=== PATIENT | female | born 1975 | race Caucasian/White ===

== ENCOUNTER → 2016-10-07 | Day surgery (SDC) | payer OTHER ==
[~2016-10-07] VITALS: Ht 160 cm; Wt 61.7 kg
[~2016-10-07] MED LIST: ACETAMINOPHEN 650 MG SUPP As Ordered ONE; ACETAMINOPHEN 650 MG SUPP PR ONE; BUPIVACAINE HCL 0.25% 30 ML VIAL XX ONE; BUPIVACAINE/EPIN 0.25% 30 ML VIAL As Ordered ONE; GLYCOPYRROLATE INJ 0.2 MG/ML 2 ML VIAL As Ordered ONE; HYDROmorphone HCL 1 MG/ML SYRINGE (J1170) IV PRN; IBUP80TA PO; IBUPROFEN 800 MG TAB PO SCH; IMIT100T PO; KETOROLAC 60 MG/2 ML VIAL (J1885) As Ordered ONE; LIDOCAINE 2% INJ 100 MG/5 ML SDV (FOR ANES.) As Ordered ONE; LR 1,000 ML IV SCH; METHYLENE BLUE 1% 10 ML VIAL (Q9968) As Ordered ONE; METOCLOPRAMIDE INJ 10MG/2ML VIAL (J2765) As Ordered ONE; MIDAZOLAM INJ 2 MG/2 ML VIAL (J2250) As Ordered ONE; NABU750T PO; NEOSTIGMINE 1MG/ML 5 ML SYRINGE (J2710) As Ordered ONE; ONDANSETRON 4MG/2ML VIAL (J2405) As Ordered ONE; ONDANSETRON 4MG/2ML VIAL (J2405) IV PRN; PERCOCET 5MG/325MG TAB PO PRN; PROPOFOL 200 MG/20 ML VIAL As Ordered ONE; ROCURONIUM BROMIDE 50 MG/5 ML VIAL As Ordered ONE; TOPA25TA10 PO; TOPA50TA7 PO; dexameTHASONE 4 MG/ML 1ML VIAL (J1100) As Ordered ONE; fentaNYL 100 MCG/2 ML INJECTION (J3010) IV PRN; fentaNYL 250 MCG/5 ML INJECTION (J3010) As Ordered ONE
[2016-10-07 07:42] LABS: CONTROL LINE UCG INT CTR LINE PRESENT
[2016-10-07 07:58] LABS: MEAN CORPUSCULAR HEMOGLOBIN 32.2 pg (27.0-33.0); MEAN CORPUSCULAR HGB CONC 34.7 g/dl (32.0-36.5); MEAN CORPUSCULAR VOLUME 92.8 fl (80.0-96.0); RED CELL DISTRIBUTION WIDTH 11.8 % (11.5-14.5); WHITE BLOOD COUNT 6.3 K/mm3 (4.0-10.0)
[2016-10-07] MEDS: LR 1,000 ML IV SCH ×2 (07:59→08:00)
[2016-10-07 08:12] LABS: ANION GAP 7 MEQ/L (8-16); BLOOD UREA NITROGEN 15 MG/DL (7-18); CALCIUM LEVEL 9.1 MG/DL (8.5-10.1); CARBON DIOXIDE LEVEL 28 MEQ/L (21-32); CHLORIDE LEVEL 108 MEQ/L (98-107); CREATININE FOR GFR 0.85 MG/DL (0.55-1.02); GLOMERULAR FILTRATION RATE > 60.0 (>58); GLUCOSE, FASTING 103 MG/DL (70-105); POTASSIUM SERUM 3.6 MEQ/L (3.5-5.1); SODIUM LEVEL 143 MEQ/L (136-145)
--- NOTE | 2016-10-07 09:42 | RO ---
DATE OF PROCEDURE: 10/07/2016 PREOPERATIVE DIAGNOSIS: Chronic pelvic pain not responsive to medical treatment. POSTOPERATIVE DIAGNOSES: 1. Chronic pelvic pain not responsive to medical treatment. 2. Endometriotic implant in the posterior cul-de-sac. PROCEDURE: 1. Diagnostic laparoscopy. 2. Fulguration of endometriosis. SURGEON: Tyler Barerra DO HOT BLASTER: ANESTHESIA: General. Isabel is a 41-year-old female with extensive history of chronic pelvic pain not responding to oral pain medications. After counseling in the office, a decision was made for diagnostic laparoscopy, possible lysis of adhesion, possible fulguration of endometriosis. Complication none. Estimated blood loss less than 5 mL. Normal-appearing uterus, bilateral ovaries and tube. The appendix was visualized, which was within normal limit. The upper abdomen was within normal limit. The lower abdominal area was without any lesion. In the posterior cul-de-sac, two endometriotic implants were noted. The rest of the abdomen and pelvis was within normal limit. DESCRIPTION OF PROCEDURE: Obtaining informed consent, patient was taken to the operating room where general anesthetic was found to be adequate. She was then draped and prepped in usual sterile fashion in the dorsal lithotomy position. At this point, Buchanan catheter was placed in the bladder for drainage. We then placed uterine manipulator. Attention was then turned to the abdomen where a 5 mm infraumbilical incision was made. Using the Veress needle, the abdomen was insufflated with CO2 gas to approximately 3.5 liters. We then placed a 5 mm Xcel trocar along with the laparoscope under direct visualization. Then, a 5 mm right lateral port was placed. Patient was placed in Trendelenburg. The abdomen and pelvis was inspected with the above-noted findings. At this point, a 5 mm ball was used through the LYNN Harmonic device and the were fulgurated. Pelvis was then copiously irrigated with normal saline and suctioned out. Good hemostasis noted. The instruments were removed. The laparoscopic ports were then (dictation cutting out) 0.25% Marcaine was placed at the operative site for postoperative pain. Patient tolerated procedure well. She was then transferred to recovery room in stable condition.
[2016-10-07 11:05] VITALS: BP 116/67
== END ==
LOC: M SDC 07:11
PROVIDERS: ATTEND Obstetrics & Gynecology
DX: R10.2 Pelvic and perineal pain (principal); N80.3 Endometriosis of pelvic peritoneum; G43.909 Migraine, unspecified, not intractable, without status migrainosus; Z88.5 Allergy status to narcotic agent; Z88.8 Allergy status to other drugs, medicaments and biological substances; Z79.899 Other long term (current) drug therapy
CPT/HCPCS: 36415; 58662; 80048; 84703; 85027; 86850; 86900; 86901; J1100; J1885; J2250; J2405; J2710; J2765; J3010

== ENCOUNTER → 2018-03-27 | Outpatient (REF) | payer OTHER | LOC: M SFHCCLAY 12:37 | DX: J02.9 Acute pharyngitis, unspecified (principal) ==

== ENCOUNTER → 2019-03-14 | Outpatient (REF) | payer OTHER ==
[~2019-03-14] MED LIST changes: -ACETAMINOPHEN 650 MG SUPP As Ordered ONE; -ACETAMINOPHEN 650 MG SUPP PR ONE; -BUPIVACAINE HCL 0.25% 30 ML VIAL XX ONE; -BUPIVACAINE/EPIN 0.25% 30 ML VIAL As Ordered ONE; -GLYCOPYRROLATE INJ 0.2 MG/ML 2 ML VIAL As Ordered ONE; -HYDROmorphone HCL 1 MG/ML SYRINGE (J1170) IV PRN; -IBUPROFEN 800 MG TAB PO SCH; -KETOROLAC 60 MG/2 ML VIAL (J1885) As Ordered ONE; -LIDOCAINE 2% INJ 100 MG/5 ML SDV (FOR ANES.) As Ordered ONE; -LR 1,000 ML IV SCH; -METHYLENE BLUE 1% 10 ML VIAL (Q9968) As Ordered ONE; -METOCLOPRAMIDE INJ 10MG/2ML VIAL (J2765) As Ordered ONE; -MIDAZOLAM INJ 2 MG/2 ML VIAL (J2250) As Ordered ONE; +NABU-119 PO; -NABU750T PO; -NEOSTIGMINE 1MG/ML 5 ML SYRINGE (J2710) As Ordered ONE; -ONDANSETRON 4MG/2ML VIAL (J2405) As Ordered ONE; -ONDANSETRON 4MG/2ML VIAL (J2405) IV PRN; -PERCOCET 5MG/325MG TAB PO PRN; -PROPOFOL 200 MG/20 ML VIAL As Ordered ONE; -ROCURONIUM BROMIDE 50 MG/5 ML VIAL As Ordered ONE; +TOPA1TAB PO; -TOPA25TA10 PO; -TOPA50TA7 PO; +TOPA50TA8 PO; -dexameTHASONE 4 MG/ML 1ML VIAL (J1100) As Ordered ONE; -fentaNYL 100 MCG/2 ML INJECTION (J3010) IV PRN; -fentaNYL 250 MCG/5 ML INJECTION (J3010) As Ordered ONE
[2019-03-14 17:03] LABS: BASO # 0.1 10^3/uL (0.0-0.2); BASO % 1.2 % (0.0-1.0); EOS # 0.1 10^3/uL (0.0-0.50); EOS % 1.5 % (0.0-3.0); HEMATOCRIT 44.1 % (36.0-47.0); HEMOGLOBIN 15.2 g/dl (12.0-15.5); LYMPH # 1.5 10^3/uL (1.5-4.5); LYMPH % 22.3 % (24.0-44.0); MEAN CORPUSCULAR HEMOGLOBIN 33.4 pg (27.0-33.0); MEAN CORPUSCULAR HGB CONC 34.5 g/dl (32.0-36.5); MEAN CORPUSCULAR VOLUME 96.9 fl (80.0-96.0); MONO # 0.6 10^3/uL (0.0-0.8); MONO % 9.2 % (0.0-5.0); NEUTROPHILS # 4.2 10^3/uL (1.8-7.7); NEUTROPHILS % 65.5 % (36.0-66.0); PLATELET COUNT, AUTOMATED 260 10^3/uL (150-450); RED BLOOD COUNT 4.55 10^6/uL (4.00-5.40); WHITE BLOOD COUNT 6.5 10^3/uL (4.0-10.0)
[2019-03-14 17:16] LABS: ALBUMIN 4.1 GM/DL (3.2-5.2); ALT/SGPT 17 U/L (12-78); BILIRUBIN,TOTAL 0.4 MG/DL (0.2-1.0); BLOOD UREA NITROGEN 19 MG/DL (7-18); CALCIUM LEVEL 9.4 MG/DL (8.5-10.1); CARBON DIOXIDE LEVEL 26 MEQ/L (21-32); CHLORIDE LEVEL 108 MEQ/L (98-107); CREATININE FOR GFR 0.84 MG/DL (0.55-1.30); GLOMERULAR FILTRATION RATE > 60.0 (>58); GLUCOSE, FASTING 97 MG/DL (70-100); POTASSIUM SERUM 3.9 MEQ/L (3.5-5.1); SODIUM LEVEL 141 MEQ/L (136-145); TOTAL PROTEIN 7.5 GM/DL (6.4-8.2); URIC ACID 3.6 MG/DL (2.6-6.0)
[2019-03-14 19:39] LABS: ERYTHROCYTE SEDIMENTATION RATE 6 mm/hr (0-20)
== END ==
LOC: M SFHCCLAY 10:13
PROVIDERS: ATTEND Nurse Practitioner Family
DX: M79.7 Fibromyalgia (principal); M54.2 Cervicalgia; R20.2 Paresthesia of skin; M79.675 Pain in left toe(s)

== ENCOUNTER → 2019-06-11 | Outpatient (CLI) | payer OTHER ==
--- NOTE | 2019-06-11 18:12 | REP ---
Clinical: Left ankle pain. Technique: AP, lateral, bilateral oblique views of the left ankle. Findings: Findings to suggest prior open reduction and fixation. No acute fracture dislocation. Skeletal structures, joint spaces, ankle mortise, and surrounding soft tissues are grossly normal. Impression: No obvious acute fracture dislocation. Electronically Signed by Manuel Vasquez MD 06/11/2019 06:04 P
== END ==
LOC: M CLY 15:21
PROVIDERS: ATTEND Nurse Practitioner Family
DX: M25.572 Pain in left ankle and joints of left foot (principal)

== ENCOUNTER → 2020-12-21 | Outpatient (CLI) | payer OTHER ==
[~2020-12-21] MED LIST changes: -NABU-119 PO; +NABU-73 PO
--- NOTE | 2020-12-21 11:11 | REP ---
INDICATION: RIGHT ANTERIOR SHOULDER PAIN COMPARISON: None. TECHNIQUE: Three views right shoulder. FINDINGS: There is no evidence of acute fracture, dislocation, or intrinsic bone disease. There is mild narrowing and spurring at the acromioclavicular joint. There is mild spurring of the inferior glenoid. Calcification at the superolateral aspect of the humeral head likely represents tendinous calcification and may indicate calcific tendinitis. IMPRESSION: No fracture or dislocation. Mild degenerative changes acromioclavicular joint and glenohumeral joint. Suspected tendinous calcification along superolateral humeral head may indicate calcific tendinitis. <Electronically signed by Paul Larsen > 12/21/20 [id number]
== END ==
LOC: M CLY 10:06
PROVIDERS: ATTEND Nurse Practitioner Family
DX: M25.511 Pain in right shoulder (principal)

== ENCOUNTER → 2022-10-24 | Outpatient (CLI) | payer OTHER | LOC: M PLAIMG 10:27 | PROVIDERS: ATTEND Nurse Practitioner Family | DX: N20.0 Calculus of kidney (principal) ==

== ENCOUNTER → 2023-07-04 | Outpatient (CLI) | payer OTHER | LOC: M RAD 10:18 | PROVIDERS: ATTEND Nurse Practitioner Family | DX: R10.2 Pelvic and perineal pain (principal) ==

== ENCOUNTER 2023-08-11 10:18 | Day surgery (SDC) | payer OTHER ==
[~2023-08-11] VITALS: Ht 160 cm; Wt 69.9 kg
[~2023-08-11 10:18] MED LIST changes: +AIMO70IN SC; +EXCETAB32 PO; +HYDR200T46 PO; +MELO15TA28 PO; +NORT10CA2 PO; +NS 1,000 ML IV ONE; +RIZA10TA2 PO; +propofoL 200 MG/20 ML VIAL As Ordered ONE
[2023-08-11] MEDS ORDERED: propofoL 200 MG/20 ML VIAL As Ordered ONE (12:41)
[2023-08-11 13:00] VITALS: BP 135/79; TEMP 98.6; O2SAT 99
== END 2023-08-11 13:21 | disposition home or self-care (01) ==
LOC: M OPP 10:18
PROVIDERS: ATTEND Surgery
DX: Z12.11 Encounter for screening for malignant neoplasm of colon (principal); Z12.12 Encounter for screening for malignant neoplasm of rectum; K64.9 Unspecified hemorrhoids; G43.909 Migraine, unspecified, not intractable, without status migrainosus; Z79.899 Other long term (current) drug therapy; Z88.8 Allergy status to other drugs, medicaments and biological substances; Z88.5 Allergy status to narcotic agent

== ENCOUNTER → 2023-09-29 | Outpatient (REF) | payer OTHER ==
[~2023-09-29] MED LIST changes: -NS 1,000 ML IV ONE; -propofoL 200 MG/20 ML VIAL As Ordered ONE
[2023-09-29 17:49] LABS: RSV AMPLIFICATION NEGATIVE (NEGATIVE)
== END ==
LOC: M SFHCCLAY 14:29
PROVIDERS: ATTEND Physician Assistant
DX: J02.9 Acute pharyngitis, unspecified (principal)

== ENCOUNTER → 2025-03-14 | Outpatient (REF) | payer OTHER ==
[2025-03-14 17:22] LABS: CALCIUM LEVEL 9.8 MG/DL (8.5-10.1); CARBON DIOXIDE LEVEL 35 MMOL/L (20-31); CHLORIDE LEVEL 97 MMOL/L (98-107); CREATININE FOR GFR 0.80 MG/DL (0.55-1.30); GLOMERULAR FILTRATION RATE > 90.0 (>58); MAGNESIUM LEVEL 2.2 MG/DL (1.8-2.4); POTASSIUM SERUM 3.4 MMOL/L (3.5-5.1); SODIUM LEVEL 142 MMOL/L (136-145)
== END ==
LOC: M SFHCCLAY 13:56
PROVIDERS: ATTEND Nurse Practitioner Family
DX: I10 Essential (primary) hypertension (principal); F41.1 Generalized anxiety disorder; G43.101 Migraine with aura, not intractable, with status migrainosus